=== PATIENT | male | born 1995 | race Caucasian/White ===

== ENCOUNTER 2017-02-21 17:45 | Emergency (ER) | payer SELFPAY ==
--- NOTE | ~2017-02-21 | ER ---
PATIENT'S NAME: MARYBEL REYES [facility] AGE: 21 Y [address] ROOM: [place] [id number] LOCATION: ED ADMIT DATE: 02/21/2017 ER/Outpatient Report DISCHARGE DATE: 02/21/2017 FAMILY PHYSICIAN: PHYSICIAN, NO ATTENDING PHYSICIAN: Alfonso Miller TIME OF ARRIVAL: 1745 hours. TIME SEEN: 1815 hours. HISTORY OF PRESENT ILLNESS: This is a 21-year-old male he is previously healthy. He is in with complaint of epigastric pain for the past 3 weeks. He states that he has had pain in the pit of his stomach. It is worse after he eats. He has had frequent episodes of emesis. He states that he had several emesis with blood in it earlier today. He describes as blood streaks in the emesis. PAST MEDICAL HISTORY: Significant for gastroesophageal reflux disease and gastritis. CURRENT MEDICATIONS: He states he has been taking stomach medications that were prescribed for friend of his. SOCIAL HISTORY: He is a 2 pack per day smoker. PHYSICAL EXAMINATION: GENERAL: Alert, cooperative male, in no acute distress. VITAL SIGNS: Stable. SKIN: Warm and dry. Color is normal. HEAD, EARS, EYES, NOSE, AND THROAT: Normal. NECK: Supple. HEART AND LUNGS: Normal. ABDOMEN: Soft. He had minimal epigastric tenderness. No guarding or rebound tenderness. EXTREMITIES: Normal. NEUROLOGIC: Exam is normal. LABORATORY DATA: CBC reveals slightly elevated white blood cell count of 13,000. Metabolic panel reveal bicarb was 19, total bilirubin slightly elevated at 1.6, and lipase was normal at 124. Urinalysis had an elevated specific gravity of PATIENT'S NAME: MARYBEL REYES [facility] AGE: 21 Y [address] ROOM: [place] [id number] LOCATION: ED ADMIT DATE: 02/21/2017 ER/Outpatient Report DISCHARGE DATE: 02/21/2017 FAMILY PHYSICIAN: PHYSICIAN, NO ATTENDING PHYSICIAN: Alfonso Miller 1.025 and was positive for ketones. EMERGENCY DEPARTMENT COURSE: I discussed with the patient the importance of stopping smoking as nicotine is potent stimulator of gastric acid secretion. ASSESSMENT: Gastritis. PLAN: Protonix 40 mg daily, stop smoking, and follow up with his regular doctor as needed. ALICIA WELLER MD JMOE/modl /[id number] d: 02/22/17 0136 t: 02/22/17 0542, OUTPATIENT REPORT
[2017-02-21 18:25] LABS: BASOPHIL # 0.1 K/uL (0.0-0.2); BASOPHIL % 0.4 %; EOSINOPHIL # 0.1 K/uL (0.0-0.5); EOSINOPHIL % 0.5 %; HEMATOCRIT 49.9 % (37.0-53.0); IMMATURE GRANULOCYTE # 0.1 K/uL (0.0-0.3); IMMATURE GRANULOCYTE % 0.4 %; LYMPHOCYTE % 14.1 %; MCHC 36.1 gm/dL (32.0-36.5); MCV 88.8 fl (83.0-98.0); MONOCYTE # 1.1 K/uL (0.0-1.0); MONOCYTE % 8.1 %; MPV 10.2 fl (9.4-12.4); NEUTROPHIL # (ANC) 10.6 K/uL (1.4-9.0); NEUTROPHIL % 76.5 %; NRBC % 0 /100WBC (0-0.00); PLATELET COUNT 240 K/uL (150-450); RBC 5.62 M/uL (4.00-6.00); RDW-CV 12.2 % (11.9-14.6); WBC 13.9 K/uL (4.0-11.0)
[2017-02-21 18:40] LABS: ALBUMIN 4.8 gm/dL (3.5-5.0); ALK PHOS 75 IU/L (33-138); ALT 21 IU/L (12-78); ANION GAP 17.9 (10.0-19.0); AST 16 IU/L (10-40); BLOOD UREA NITROGEN 14 mg/dL (6-24); CHLORIDE 103 mMol/L (96-110); CO2 19 mMol/L (22-32); POTASSIUM 3.9 mMol/L (3.7-5.1); SODIUM 136 mMol/L (135-145); TOTAL BILIRUBIN 1.6 mg/dL (0.0-1.5); TOTAL PROTEIN 8.7 g/dL (6.0-8.4)
[2017-02-21 19:03] LABS: BILIRUBIN URINE NEGATIVE (NEGATIVE); BLOOD URINE 10 /UL (NEGATIVE); COLOR URINE YELLOW (YELLOW); GLUCOSE URINE NEGATIVE (NEGATIVE); KETONE URINE 150 mg/dL (NEGATIVE); LEUKOCYTES URINE NEGATIVE /UL (NEGATIVE); NITRITE URINE NEGATIVE (NEGATIVE); PROTEIN URINE 15 mg/dL (NEGATIVE); SPEC GRAVITY URINE 1.025 (1.003-1.035); TURBIDITY URINE CLEAR (CLEAR); UROBILINOGEN URINE NORMAL (NORMAL)
[2017-02-21 19:13] LABS: BACTERIA URINE FEW (NEGATIVE); EPITHELIAL URINE 0-2 #/HPF (NEGATIVE); RBC URINE 0-2 #/HPF (NEGATIVE); WBC URINE NEGATIVE #/HPF (NEGATIVE)
[2017-02-21 19:23] LABS: AMPHETAMINE POSITIVE (NEGATIVE); BARBITURATE NEGATIVE (NEGATIVE); COCAINE POSITIVE (NEGATIVE); OPIATES NEGATIVE (NEGATIVE)
== END 2017-02-21 19:31 | disposition disaster alternative care site (69) ==
LOC: GMED 17:45
PROVIDERS: Emergency Medicine
DX: K29.70 Gastritis, unspecified, without bleeding (principal); K21.9 Gastro-esophageal reflux disease without esophagitis; F17.210 Nicotine dependence, cigarettes, uncomplicated
CPT/HCPCS: C9113; J7030